=== PATIENT | female | born 1955 | race Caucasian/White ===

== ENCOUNTER 2023-10-11 08:54 | Emergency (ER) | payer MEDICARE ==
[~2023-10-11] VITALS: Ht 160 cm; Wt 80.7 kg
[2023-10-11] MEDS: KETOROLAC 30MG VIAL (30MG/ML) IM ONE (10:10)
[2023-10-11 10:15] VITALS: BP 151/80; PULSE 80; RESP 18; O2SAT 100
[2023-10-11] MEDS ORDERED: MUPI22OI2 TP (10:15)
[2023-10-11] MEDS ORDERED: DICL20GE TP (10:15)
[2023-10-11] MEDS ORDERED: IBUP-2070 PO (10:17)
== END 2023-10-11 10:26 | disposition home or self-care (01) ==
LOC: EDH 08:54
DX: S90.511A Abrasion, right ankle, initial encounter (principal); M19.022 Primary osteoarthritis, left elbow; I10 Essential (primary) hypertension; E78.00 Pure hypercholesterolemia, unspecified; Z96.643 Presence of artificial hip joint, bilateral; W10.9XXA Fall (on) (from) unspecified stairs and steps, initial encounter; Y93.89 Activity, other specified; Y92.89 Other specified places as the place of occurrence of the external cause; Y99.8 Other external cause status
CPT/HCPCS: 99284; 73080; 73060; 96372; J1885; 29105